=== PATIENT | female | born 1970 | race Caucasian/White ===

== ENCOUNTER 2018-12-26 11:44 | Emergency (ER) | payer OTHER ==
[~2018-12-26] VITALS: Ht 162.6 cm; Wt 93.4 kg
[2018-12-26 12:10] VITALS: BP 122/74
--- NOTE | 2018-12-26 12:18 | NUR ---
PT AMBULATED TO ER BED 10 AT THIS TIME
--- NOTE | 2018-12-26 12:20 | NUR ---
48Y/F BIB [facility] WITH C/O COUGH AND WITH PHLEGM X 2 WEEKS. -N/V/D. PT IS AAOX4, VSS, BED DOWN BEDRAIL UP X1, ER MD AWARE AND NOTIFIED OF PT STATUS.
--- NOTE | 2018-12-26 12:35 | NUR ---
Patient being evaluated by physician at bedside.
[2018-12-26] MEDS ORDERED: ALBUTEROL SULFATE/IPRATROPIU 3 ML SOL IH ONE (12:40)
[2018-12-26] MEDS ORDERED: DEXAMETHASONE 10 MG/ML VIAL IM ONE (12:40)
[2018-12-26] MEDS ORDERED: CLINDAMYCIN 600 MG/4 ML VIAL IM ONE (12:40)
--- NOTE | 2018-12-26 14:00 | NUR ---
Patient discharged with v/s stable. Written and verbal after care instructions given and explained. Patient alert, oriented and verbalized understanding of instructions. Ambulatory with steady gait. All questions addressed prior to discharge. ID band removed. Patient advised to follow up with PMD. Rx of promethazine given. Patient educated on indication of medication including possible reaction and side effects. Opportunity to ask questions provided and answered.
[2018-12-26 14:01] VITALS: BP 122/74
== END 2018-12-26 14:00 | disposition home or self-care (01) ==
LOC: MED 11:44
DX: J06.9 Acute upper respiratory infection, unspecified (principal); J45.909 Unspecified asthma, uncomplicated; E11.9 Type 2 diabetes mellitus without complications; Z88.0 Allergy status to penicillin
CPT/HCPCS: 94640; 96372; 99283; J1100; J3490; J7620